=== PATIENT | female | born 1945 | race Caucasian/White ===

== ENCOUNTER 2016-08-10 11:51 | Emergency (ER) | payer MEDICARE, BC ==
--- NOTE | 2016-08-10 13:11 | EDM.PDOC ---
ED HPI GI/ABDOMINAL - General Chief Complaint: Gastrointestinal Problem Stated Complaint: BLACK TARRY STOOLS Time Seen by Provider: 08/10/16 12:23 Source: Reports: Patient History Limitations: Reports: No limitations - History of Present Illness INITIAL COMMENTS - FREE TEXT/NARRATIVE: This patient comes in for a GI bleed. One week ago she saw her because of a problem with her Achilles tendon. diagnosed gout and said her uric acid was increased. She was put on Motrin. After 2 days she began to have black stools. She took the ibuprofen for 4 days. She's been off of it for a couple of days now. She was also started on lisinopril and hydrochlorothiazide was stopped. Today she continues to have black stools she feels weak and tired. Her blood pressure was 90/50 earlier today. She was seen at the clinic this morning and some lab work was done. Note that this patient continues to take Coumadin that's for atrial fibrillation and a history of pulmonary embolus. - Related Data Allergies/ADRs: Allergies Allergy/AdvReac Type Severity Reaction Status Date / Time adhesive tape Allergy Rash Verified 08/10/16 12:15 latex Allergy Rash Verified 08/10/16 12:15 nickel Allergy Rash Verified 08/10/16 12:15 elastic bandages Allergy Rash Uncoded 08/10/16 12:15 Home Meds: Home Meds Ascorbic Acid [Vitamin C] 1 tab PO BID 08/10/16 [History] Aspirin [Halfprin] 1 tab PO DAILY 08/10/16 [History] Bisacodyl [Dulcolax] 2 tab PO DAILY 08/10/16 [History] Calcium Carbonate/Vitamin D3 [Calcium 600 + Vit D 200] 1 cap PO BID 08/10/16 [ History] Cyanocobalamin (Vitamin B-12) [B-12] 1 tab PO DAILY 08/10/16 [History] Fluocinolone Acetonide [Synalar] 1 applicful TOP DAILY 08/10/16 [History] Lisinopril 1 tab PO DAILY 08/10/16 [History] Metoprolol Succinate [Toprol XL 100mg] 1 tab PO DAILY 08/10/16 [History] Rosuvastatin [Crestor] 1 tab PO DAILY 08/10/16 [History] Vitamin E 1 tab PO DAILY 08/10/16 [History] Warfarin [Coumadin] 1 tab PO ASDIRECTED 08/10/16 [History] Warfarin [Coumadin] 1 tab PO ASDIRECTED 08/10/16 [History] diphenhydrAMINE [Benadryl] 50 mg PO Q6HR 08/10/16 [History] Past Medical History HEENT History: Reports: Cataract Cardiovascular History: Reports: High cholesterol, Hypertension Respiratory History: Reports: Other (see below) Other Respiratory History: pulmonary emboli Gastrointestinal History: Reports: GI bleed Genitourinary History: Reports: Renal disease, Other (see below) Other Genitourinary History: stage 3 kidney disease 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: Musculoskeletal History: Reports: Fracture, Other (see below) Other Musculoskeletal History: left arm fracture Endocrine/Metabolic History: Reports: Diabetes, type II Other Endocrine/Metabolic History: diet controlled Dermatologic History: Reports: Other (see below) Other Dermatologic History: contact dermatits - Past Surgical History HEENT Surgical History: Reports: Adenoidectomy, Tonsillectomy GI Surgical History: Reports: Other (see below) Other GI Surgeries/Procedures: chronic constipation Endocrine Surgical History: Reports: None Neurological Surgical History: Reports: C-Spine Other Neurological Surgeries/Procedures: 5 compressed vertibrae Social & Family History - Tobacco Use Smoking Status *Q: Current Every Day Smoker Years of Tobacco use: 54 Packs/Tins Daily: 1 - Caffeine Use Caffeine Use: Reports: Coffee - Recreational Drug Use Recreational Drug Use: No ED ROS GENERAL - Review of Systems Review Of Systems: See Below Constitutional: Reports: fatigue HEENT: Reports: No symptoms Respiratory: Reports: No Symptoms Cardiovascular: Reports: No symptoms Endocrine: Reports: no symptoms GI/Abdominal: Reports: Melena : Reports: no symptoms Musculoskeletal: Reports: no symptoms Skin: Reports: no symptoms Neurological: Reports: No Symptoms ED EXAM, GI/ABD - Physical Exam Exam: See Below Exam Limited By: No limitations General Appearance: alert, WD/WN, no apparent distress Eyes: bilateral: normal appearance Throat/Mouth: Normal inspection Respiratory/Chest: lungs clear Cardiovascular: regular rate, rhythm GI/Abdominal: non tender Extremities: normal inspection Neurological: alert Psychiatric: normal affect Skin Exam: Warm, Dry, Normal color Course - Vital Signs Last Recorded V/S: Last Vital Signs Temp 37.0 C 08/10/16 14:55 Pulse 57 L 08/10/16 14:55 Resp 16 08/10/16 14:55 BP 135/64 08/10/16 14:55 Pulse Ox 98 08/10/16 14:55 - Orders/Labs/Meds Orders: Active Orders 24 hr Category Date Time Status Hemoccult [OCCULT BLOOD DIAGNOSTIC] [OP] Stat Lab 08/10/16 13:07 Uncollected Labs: Laboratory Tests 08/10/16 08/10/16 08/10/16 Range/Units 13:20 13:20 13:20 WBC 9.7 (4.5-11.0) K/uL RBC 3.53 (3.30-5.50) M/uL Hgb 11.3 L (12.0-15.0) g/dL Hct 34.1 L (36.0-48.0) % MCV 97 (80-98) fL MCH 32 H (27-31) pg MCHC 33 (32-36) % Plt Count 176 (150-400) K/uL Neut % (Auto) 65 (36-66) % Lymph % (Auto) 20 L (24-44) % [place] % (Auto) 10 H (2-6) % Eos % (Auto) 5 H (2-4) % Baso % (Auto) 1 (0-1) % PT 27.2 H (9.5-12.0) sec INR 2.49 H (0.80-1.20) APTT 37.0 H (27.0-36.0) sec Sodium 147 (140-148) mmol/L Potassium 4.5 (3.6-5.2) mmol/L Chloride 111 H (100-108) mmol/L Carbon Dioxide 27 (21-32) mmol/L Anion Gap 13.5 (5.0-14.0) mmol/L BUN 28 H (7-18) mg/dL Creatinine 1.0 (0.6-1.0) mg/dL Est Cr Clr Drug Dosing 53.92 mL/min Estimated GFR (MDRD) 55 L (>60) Glucose 118 H (74-106) mg/dL Calcium 8.2 L (8.5-10.1) mg/dL Total Bilirubin 0.2 (0.2-1.0) mg/dL AST 19 (15-37) U/L ALT 30 (12-78) U/L Alkaline Phosphatase 44 L (46-116) U/L Total Protein 6.0 L (6.4-8.2) g/dL Albumin 3.3 L (3.4-5.0) g/dL Globulin 2.7 (2.3-3.5) g/dL Albumin/Globulin Ratio 1.2 (1.2-2.2) - Re-Assessments/Exams Free Text/Narrative Re-Assessment/Exam: 08/10/16 15:24 All labs were reviewed with this patient. Her hemoglobin is 11.3 and INR of 2.4 9r those were done in clinic earlier today. This appears to be stable. Her normal hemoglobin is about 14. This would explain her fatigue. Her blood pressure has been in the normal or are higher range. No episodes of any hypotension despite her history of a blood pressure 90/50 in clinic. I spoke with Dr. White he will plan to scope her tomorrow some and someone from surgery will come to see the patient. I put her on omeprazole 20 mg twice daily and she's to continue all of her other medications including Coumadin Departure - Departure Time of Disposition: 15:26 Disposition: Home, Self-Care 01 Condition: fair Clinical Impression: Upper GI bleeding Forms: ED Department Discharge Additional Instructions: Take omeprazole magnesium 20 mg twice daily for one week. This medication is used for such things as ulcers, reflux and gastritis. Continue taking the Coumadin and all of your other medications. Continue the same diet after the procedure. Dr. White will plan to scope you tomorrow. Plan to followup with your DrFrancoise in about a week. - My Orders Last 24 Hours: My Active Orders 08/10/16 13:07 Hemoccult [OCCULT BLOOD DIAGNOSTIC] [OP] Stat - Assessment/Plan Last 24 Hours: My Active Orders 08/10/16 13:07 Hemoccult [OCCULT BLOOD DIAGNOSTIC] [OP] Stat
[2016-08-10 14:56] VITALS: BP 135/64
== END 2016-08-10 15:47 | disposition home or self-care (01) ==
LOC: JP.ED 11:51
DX: K92.2 Gastrointestinal hemorrhage, unspecified (principal); I12.9 Hypertensive chronic kidney disease with stage 1 through stage 4 chronic kidney disease, or unspecified chronic kidney disease; N18.3 Chronic kidney disease, stage 3 (moderate); E11.9 Type 2 diabetes mellitus without complications; E78.00 Pure hypercholesterolemia, unspecified; F17.210 Nicotine dependence, cigarettes, uncomplicated; Z86.711 Personal history of pulmonary embolism; Z98.890 Other specified postprocedural states; Z79.01 Long term (current) use of anticoagulants; Z79.82 Long term (current) use of aspirin; Z79.899 Other long term (current) drug therapy; Z91.040 Latex allergy status; Z91.048 Other nonmedicinal substance allergy status
CPT/HCPCS: 36415; 80053; 85025; 85610; 85730; 99284; 99285

== ENCOUNTER 2016-08-11 09:41 | Day surgery (SDC) | payer MEDICARE, BC ==
[2016-08-11] MEDS ORDERED: Dextrose 5%-Lactated Ringers 1,000 ML IV SCH (11:00)
[2016-08-11] MEDS ORDERED: fentaNYL 100 MCG/2 ML SDV ONE (11:52)
[2016-08-11] MEDS ORDERED: Propofol 200 MG/20 ML SDV ONE (11:52)
[2016-08-11] MEDS ORDERED: Midazolam 1 MG/ML 2 ML SDV ONE (11:52)
[2016-08-11 14:33] VITALS: BP 111/67
--- NOTE | 2016-08-13 07:44 | OR ---
DATE OF PROCEDURE: 08/11/2016 PROCEDURE: Esophagogastroduodenoscopy. FINDINGS: 1. Multiple gastric ulcers (biopsied in proximity for H. pylori evaluation). 2. No other abnormalities. 3. No active bleeding. COMPLICATIONS: None. HANGAR ATTENDANT: None. ANESTHESIA: MAC. PREOPERATIVE DIAGNOSIS: Epigastric pain. POSTOPERATIVE DIAGNOSIS: Epigastric pain. RISKS: Risks, benefits, alternatives, and limitations, including, but not limited to infection, bleeding, and perforation were explained to the patient and she wished to proceed. PROCEDURE IN DETAIL: The patient was placed in left lateral decubitus position. The EGD scope was introduced and advanced atraumatically into the duodenum. In the duodenum and its associated bulb, there were no abnormalities. In the distal antrum the patient had 3 or 4 ulcerations. These appeared to be healing and not actively bleeding. This was biopsied in proximity for H. pylori. On retroflexion there was no hiatal hernia. The GE junction and the esophagus were normal. The patient tolerated the procedure well. Chan White MD /[id number]
== END 2016-08-11 14:37 | disposition home or self-care (01) ==
LOC: JP.SDS 09:41
PROVIDERS: ATTEND Surgery
DX: K31.89 Other diseases of stomach and duodenum (principal); E11.22 Type 2 diabetes mellitus with diabetic chronic kidney disease; I12.9 Hypertensive chronic kidney disease with stage 1 through stage 4 chronic kidney disease, or unspecified chronic kidney disease; N18.9 Chronic kidney disease, unspecified; F17.200 Nicotine dependence, unspecified, uncomplicated; Z91.040 Latex allergy status; Z91.09 Other allergy status, other than to drugs and biological substances
CPT/HCPCS: 43239; J2250; J2704; J3010; J7042; 88305

== ENCOUNTER 2016-09-10 06:19 | Day surgery (SDC) | payer MEDICARE, BC ==
[2016-09-10] MEDS ORDERED: Sodium Chloride 0.9% 1,000 ML IV SCH (07:30)
[2016-09-10] MEDS ORDERED: Propofol 200 MG/20 ML SDV ONE (07:39)
[2016-09-10] MEDS ORDERED: fentaNYL 100 MCG/2 ML SDV ONE (07:39)
[2016-09-10] MEDS ORDERED: Midazolam 1 MG/ML 2 ML SDV ONE (07:39)
[2016-09-10 08:47] VITALS: BP 117/89
--- NOTE | 2016-09-11 07:57 | OR ---
DATE OF PROCEDURE: 09/10/2016 PROCEDURE: Esophagogastroduodenoscopy. FINDINGS: 1. Significant improvement of the previous multiple gastric ulcers (about 90% improvement). 2. Biopsy performed of gastric antrum to evaluate for H. pylori. COMPLICATIONS: None. COTTAGE SUPERVISOR: None. ANESTHESIA: MAC. INDICATIONS: A pleasant 71-year-old female had multiple ulcers approximately one month ago biopsied for reevaluation. Risks, benefits, alternatives, and limitations, including, but not limited to infection, bleeding, and perforation were explained to the patient, and she wished to proceed. PROCEDURE IN DETAIL: The patient was placed in left lateral decubitus position. The EGD scope was advanced atraumatically to the second part of the duodenum. The scope was brought back into the stomach. The previous area of ulceration had improved significantly. There was still a small area about approximately 90% to 95% improvement. No other abnormalities. The GE junction was normal. The patient tolerated the procedure well. Chan White MD /[id number]
== END 2016-09-10 09:05 | disposition home or self-care (01) ==
LOC: JP.SDS 06:19
PROVIDERS: ATTEND Surgery
DX: K31.89 Other diseases of stomach and duodenum (principal); I12.9 Hypertensive chronic kidney disease with stage 1 through stage 4 chronic kidney disease, or unspecified chronic kidney disease; N18.9 Chronic kidney disease, unspecified; Z91.040 Latex allergy status; Z91.09 Other allergy status, other than to drugs and biological substances; E78.5 Hyperlipidemia, unspecified; F17.210 Nicotine dependence, cigarettes, uncomplicated; R73.03 Prediabetes
CPT/HCPCS: 43239; J2250; J2704; J3010; J7040; 88305; 88341; 88342

== ENCOUNTER 2020-01-11 08:02 | Day surgery (SDC) | payer BC, MEDICARE ==
[~2020-01-11 08:02] MED LIST: Dextrose 5%-Lactated Ringers 1,000 ML IV SCH; Midazolam 1 MG/ML 2 ML SDV ONE; Propofol 200 MG/20 ML SDV ONE; fentaNYL 100 MCG/2 ML SDV ONE
[2020-01-11] MEDS ORDERED: Propofol 200 MG/20 ML SDV ONE (09:48)
[2020-01-11 10:51] VITALS: BP 155/72; PULSE 63
--- NOTE | 2020-01-17 12:31 | OR ---
DATE OF PROCEDURE: 01/11/2020 SURGEON: Bishop Holland MD PREOPERATIVE DIAGNOSIS: Positive Cologuard and history of colonic polyps. POSTOPERATIVE DIAGNOSES: 1. Positive Cologuard and history of colonic polyps. 2. Three small polyps involving the hepatic flexure, proximal transverse colon, and mid transverse colon. OPERATIVE PROCEDURE: Flexible colonoscopy with: 1. Excision of the hepatic flexure and proximal transverse colon polyps by snare technique. 2. Removal of mid transverse colon polyps by cold biopsy forceps. ANESTHESIA: IV sedation. INDICATION FOR PROCEDURE: This is a 74-year-old female presenting for colonoscopy. She does have a personal history of colon polyps nonetheless and underwent a Cologuard procedure which was positive. Plan to proceed with a colonoscopy with biopsies and/or polypectomy as necessary. Potential risks of the procedure including bleeding and perforation were discussed and the patient wishes to proceed. DETAILS OF PROCEDURE: The patient was taken to the operative room, placed in a left lateral decubitus position. IV sedation was administered after which the initial digital rectal exam was performed and was unremarkable. The colonoscope was then passed into the rectum with retroflexion revealing uncomplicated hemorrhoidal columns. The scope was eventually passed to the cecum. The prep in this case was somewhat marginal with quite a bit of liquid stool present which obscured perhaps 10% of the mucosal surfaces, 2 polyps less than half a cm or so. The examination found no areas of diverticula or obvious colitis. There were 3 small polyps, one in the hepatic flexure, one in the proximal transverse colon, and a smaller one in the mid transverse colon. The former 2 were removed by means of a snare technique and individually sent as pathologic specimens, and the remaining smaller polyp was removed with 2 bites of the cold biopsy forceps. There was no significant bleeding after the polypectomies were completed. The scope was then withdrawn and no additional abnormalities were noted and the procedure then concluded. Assuming these are adenomatous polyps, the next colonoscopy should probably be in 2 years, I moved that up a little bit from the typical 3-year timeframe due to the somewhat marginal prep. Bishop Holland MD /[id number]
== END 2020-01-11 11:00 | disposition home or self-care (01) ==
LOC: JP.SDS 08:02
PROVIDERS: ATTEND Surgery
DX: D12.3 Benign neoplasm of transverse colon (principal); K64.9 Unspecified hemorrhoids; F17.200 Nicotine dependence, unspecified, uncomplicated; E78.5 Hyperlipidemia, unspecified; I48.91 Unspecified atrial fibrillation; I12.9 Hypertensive chronic kidney disease with stage 1 through stage 4 chronic kidney disease, or unspecified chronic kidney disease; N18.3 Chronic kidney disease, stage 3 (moderate)
CPT/HCPCS: 45380; 45385; J2250; J2704; J3010; J7121; 88305

== ENCOUNTER → 2022-02-01 | Day surgery (SDC) | payer MEDICARE ==
[~2022-02-01] MED LIST changes: -Midazolam 1 MG/ML 2 ML SDV ONE
== END ==
LOC: JP.SDS 06:00
PROVIDERS: ATTEND Surgery
DX: Z12.11 Encounter for screening for malignant neoplasm of colon (principal); D12.5 Benign neoplasm of sigmoid colon; K64.9 Unspecified hemorrhoids; F17.200 Nicotine dependence, unspecified, uncomplicated; I48.91 Unspecified atrial fibrillation; I10 Essential (primary) hypertension; E11.9 Type 2 diabetes mellitus without complications; Z86.010 Personal history of colon polyps; Z20.822 Contact with and (suspected) exposure to COVID-19; Z91.040 Latex allergy status
CPT/HCPCS: 45385; 88305; J2704; J3010; J7121

== ENCOUNTER 2025-03-19 06:34 | Day surgery (SDC) | payer MEDICARE ==
[2025-03-19] MEDS: Lactated Ringers 1,000 ML IV SCH (07:19)
[2025-03-19] MEDS ORDERED: fentaNYL 100 MCG/2 ML SDV ONE (07:20)
[2025-03-19] MEDS ORDERED: Propofol 200 MG/20 ML SDV ONE ×2 (07:21→08:16)
[2025-03-19 09:46] VITALS: BP 169/58; PULSE 58
== END 2025-03-19 09:55 | disposition home or self-care (01) ==
LOC: JP.SDS 06:34
PROVIDERS: ATTEND Surgery
DX: Z12.11 Encounter for screening for malignant neoplasm of colon (principal); D12.5 Benign neoplasm of sigmoid colon; E11.22 Type 2 diabetes mellitus with diabetic chronic kidney disease; I12.9 Hypertensive chronic kidney disease with stage 1 through stage 4 chronic kidney disease, or unspecified chronic kidney disease; N18.30 Chronic kidney disease, stage 3 unspecified; E78.00 Pure hypercholesterolemia, unspecified; Z86.0101 Personal history of adenomatous and serrated colon polyps; Z88.0 Allergy status to penicillin; Z91.09 Other allergy status, other than to drugs and biological substances; Z91.040 Latex allergy status; Z79.899 Other long term (current) drug therapy
CPT/HCPCS: 00811; 45385; J2704; J3010; J7120; 88305